=== PATIENT | male | born 1965 | race Caucasian/White ===

== ENCOUNTER 2018-08-02 01:10 | Emergency (ER) | payer OTHER ==
[~2018-08-02] VITALS: Ht 177.8 cm; Wt 81.7 kg
[~2018-08-02 01:10] MED LIST: CLONAZEPAM 0.50.5 M1 PO; EPIPEN 2-P0.3 MG/0.3; HYDROCODONE-AP1 EAC6 PO; KEPPRA 500 MG500 M1 PO; KEPPRA1000 MG PO; LUNESTA1 MG PO; LUNESTA3 MG; MELOXICAM7.5 MG PO; NEXIUM; NEXIUM 40 MG CA40 M1 PO; TOPAMAX50 MG PO; TRAZODONE 150150 M1 PO; VALIUM5 MG
[2018-08-02 01:19] VITALS: BP 136/105
[2018-08-02] MEDS ORDERED: KEPPRA 500 MG500 M1 PO (01:21)
[2018-08-02] MEDS ORDERED: TRAZODONE HCL100 MG PO (01:22)
== END 2018-08-02 01:36 | disposition home or self-care (01) ==
LOC: M.ERS 01:10
DX: F41.9 Anxiety disorder, unspecified (principal); F17.210 Nicotine dependence, cigarettes, uncomplicated; Z88.0 Allergy status to penicillin

== ENCOUNTER 2021-11-26 11:59 | Emergency (ER) | payer OTHER ==
[~2021-11-26] VITALS: Ht 172.7 cm; Wt 72.6 kg
[~2021-11-26 11:59] MED LIST changes: +TRAZODONE HCL100 MG PO
[2021-11-26 14:47] VITALS: BP 0/0
== END 2021-11-26 14:48 ==
LOC: M.ERS 11:59
DX: I46.9 Cardiac arrest, cause unspecified (principal); Z20.822 Contact with and (suspected) exposure to COVID-19; R10.10 Upper abdominal pain, unspecified; F17.210 Nicotine dependence, cigarettes, uncomplicated; Z98.890 Other specified postprocedural states; Z90.89 Acquired absence of other organs; Z79.899 Other long term (current) drug therapy; Z88.0 Allergy status to penicillin; Z91.030 Bee allergy status